=== PATIENT | female | born 1980 ===

== ENCOUNTER 2016-08-11 17:47 | Inpatient (IN) ==
[2016-08-11] MEDS ORDERED: KETOROLAC 30 MG/1 ML VIAL IV STA (18:13)
[2016-08-11] MEDS ORDERED: CLINDAMYCIN INJ 900 MG in PREMIX 1 EACH IV STA (18:13)
--- NOTE | 2016-08-11 18:18 | Emergency Department Note ---
Arrival - Arrival Chief Complaint: Abscess Stated Complaint: abscess; osteomylitis ED Nursing Triage Note: Pt arrived via ems from [facility] ER with complaint of abscess to left lower jaw. Pt reports having wisdom tooth pulled from left lower jaw on yesterday at [facility]. Pt reports having pain. Went to er today. Was told that drainage released when tooth was pulled. Pt complains of difficulty swallowing. Rates pain 5 out of 10 on pain scale. Mode of Arrival: Stretcher Limitations: No Limitations Source: Patient Time Seen by Provider: 08/11/16 18:13 - History of Present Illness HPI Narrative: This 36-year-old female [place] presents on referral from [facility] for evaluation of left lower jaw pain. The patient has a history of a toothache dating back 5 days ago followed by a visit to the dentist yesterday where she had a wisdom tooth pulled. Following this she had persistent swelling increased pain and pain on swallowing that caused her to return to the [facility] last night at which time she was given antibiotics and a steroid. The situation did not improve this morning with increasing complaints of pain on swallowing, increased swelling of the left jaw, and increased pain. Subsequent workup at [place] revealed lytic lesions of the posterior mandibular body consistent with abscesses or acute osteomyelitis as well as a fluid density structure centered in left piriform sinus. The patient currently presents in discomfort but in no acute medical distress. Onset (ago): hour(s) (Patient presents 24 hours post onset of symptoms.) Date of Last Menstrual Period: 06/12/16 Allergies/Adverse Reactions: Allergies Allergy/AdvReac Type Severity Reaction Status Date / Time No Known Allergies Allergy Unverified 08/11/16 18:39 Review of System - Review of System 12 point system: reviewed and no additional remarkable complaints except as stated - Review of System Constitutional: Present: as per HPI Head/Ears/Nose/Throat: Present: see HPI Medical,Surgical,& Family Hx - Social History Smoking Status: Never smoker Frequency of Alcohol Use: None Type of Drug Use: None Exam Physical Examination: GENERAL: Well developed, well nourished female in no acute distress. HEENT: Normocephalic. Swollen left jaw and left neck with very tender left mandible to the angle of the jaw.. Moist mucous membranes. EOMI. PERRLA. ENT ears clear, nose clear, throat reveals evidence of recent tooth extraction as well as with erythematous tender floor the mouth and left mandibular gum as well as marked limitation on the ability to open her mouth due to pain NECK: Supple. Cervical adenopathy. CARDIAC: Regular. No murmurs. Heart rate 64 CHEST: Clear to auscultation. No respiratory distress. O2 sat 99% ABDOMEN: Soft. Nontender. Active bowel sounds. EXTREMITIES: No trauma. Normal ROM. No pedal edema. SKIN: No diaphoresis. No rash. NEURO: Alert. Neuro intact. No focal deficits. Vital Signs: Vital Signs Temperature 97.5 F L 08/11/16 17:50 Pulse Rate 67 08/11/16 18:15 Respiratory Rate 16 08/11/16 18:15 Blood Pressure 111/83 08/11/16 18:15 O2 Sat by Pulse Oximetry 99 08/11/16 18:15 Course - Reevaluation(s) Reevaluation #1: Patient expectant of admission - Consultations Consultation #1: Discussed with Dr. hall who will see on consult. Consultation #2: Discussed with hospitalist service who will admit for further evaluation treatment. Results - Labs Labs: Lab per Neno: White blood cell count 5900 hematocrit 36 BUN 6 creatinine 0.7 potassium 4.5 - Diagnostic Findings Procedure: CT: image reviewed by me, report reviewed by me (Neck: Lytic lesions involving the posterior mandibular body consistent with abscesses and acute osteomyelitis with cervical and submandibular adenopathy more severe on the left including a fluid density structure at center in the left piriform sinus) Disposition Clinical Impression: Left mandibular abscesses Case discussed with: patient Disposition: Still a Patient Condition: Guarded Time of Disposition: 18:41
[2016-08-11] MEDS ORDERED: KETOROLAC 30 MG/1 ML VIAL ONE (18:28)
[2016-08-11] MEDS ORDERED: methylPREDNISolone SOD SUC 125 MG/2 ML VIAL IV STA (18:35)
[2016-08-11] MEDS ORDERED: CLINDAMYCIN INJ 300 MG in SODIUM CHLORIDE 0.9% 100 ML IV STA (18:39)
[2016-08-11] MEDS ORDERED: methylPREDNISolone SOD SUC 125 MG/2 ML VIAL ONE (18:43)
[2016-08-11 18:47] LABS: Basophils % 0.4 % (0.0-0.8); Eosinophils % 0.7 % (0.00-10.9); Hematocrit 35.3 VOL% (35.7-47.0); Hemoglobin 11.7 GM/DL (12.0-16.0); Immature Granulocytes % 0.4 %; Immature Granulocytes Absolute 0.02 #; Lymphocytes # 1.2 10*3/uL (1.4-4.0); Lymphocytes % 21.4 % (21.3-54.2); Mean Corpuscular HGB Conc 33.1 GM/DL (32-36); Mean Corpuscular Hemoglobin 31 PG (27-34); Mean Corpuscular Volume 92.7 FL (87-102); Mean Platelet Volume 8.6 FL (9.6-12.0); Monocytes # 0.4 10*3/uL (0.11-0.8); Monocytes % 6.8 % (1.7-12.7); Neutrophils % 70.3 % (38.7-73.9); Platelet Count 264 T/CUMM (130-400); Red Blood Count 3.81 MC/CUMM (3.8-5.5); Red Cell Distribution Width 12.5 % (9.3-17.3); White Blood Count 5.6 T/CUMM (4-12)
[2016-08-11] MEDS ORDERED: CLINDAMYCIN INJ 300 MG in PREMIX 1 EACH IV STA (18:48)
[2016-08-11 18:58] LABS: INR 0.9; PT Patient Result 9.9 SECS; Partial Thromboplastin Time 27.9 SECS (0-40)
[2016-08-11] MEDS ORDERED: GLUCAGON 1 MG VIAL IM PRN (19:03)
[2016-08-11] MEDS ORDERED: ONDANSETRON 4 MG/2 ML VIAL IV PRN (19:03)
[2016-08-11] MEDS ORDERED: DEXTROSE 50% 25 GM/50 ML VIAL IV PRN (19:03)
[2016-08-11 19:13] LABS: Calcium 8.5 MG/DL (8.5-10.1); Osmolality,Calculated 278.3 MOS/KG (273-304); Potassium 4.3 MMOL/L (3.5-5.1)
--- NOTE | 2016-08-11 20:14 | CT Report ---
History is a left mandibular abscess 80 cc Omni 350 utilized There is a 1 x 1.5 cm lucency in the left mandible posteriorly regular the posterior molars would be expected. There is a focal area of cortical dehiscence posterior medially in this area. There is periosteal reaction along the medial aspect of the posterior body and angle of the mandible on the left. Contiguous with this area along the medial aspect of the angle of the left mandible is a 1.1 x 2.1 cm loculated fluid collection. There is surrounding soft tissue thickening involving the pterygoids muscles with additional thickening of the left masseter muscle and stranding in the surrounding fat. There is also mildly increased size and density of the left parotid gland. There are several up to 1.3 cm left submandibular nodes present. There is also asymmetric soft tissue thickening of the pharyngeal mucosal space on the left with a suspected more focal just under 1 cm fluid collection along the pharyngeal mucosal of the hypopharynx along the aryepiglottic fold on the left. There is mild resulting mass effect and narrowing of the airway. Impression: 1. Osteomyelitis in the left mandible with adjacent soft tissue abscess medial to the mandible and additional edema and mass effect on the hypopharynx including a suspected 1 cm abscess collection in the pharyngeal mucosal space along the aryepiglottic folds on the left with resulting narrowing of the airway. Please see above for complete details The CT exam was performed using one or more of the following dose reduction techniques: Automated exposure control, adjustment of the mA and/or kV according to patient size, or use of iterative reconstruction technique. PROCEDURE INTERPRETED AT [facility] DEPARTMENT OF RADIOLOGY Final Report Signed by: Dr. Gladys Vicente
[2016-08-11] MEDS: LACTATED RINGERS 1,000 ML IV SCH (22:01)
[2016-08-11] MEDS: CLINDAMYCIN INJ 900 MG in PREMIX 1 EACH IV SCH (22:02)
[2016-08-12] MEDS: INSULIN REGULAR 100 UNIT/ML SUBCUT SCH ×6 (00:25→23:35)
[2016-08-12] MEDS: CLINDAMYCIN INJ 900 MG in PREMIX 1 EACH IV SCH ×4 (02:38→20:12)
[2016-08-12] MEDS: HYDROmorphone 2 MG/1 ML VIAL IV PRN ×2 (04:51→20:13)
[2016-08-12] MEDS: LACTATED RINGERS 1,000 ML IV SCH ×3 (04:54→20:12)
--- NOTE | 2016-08-12 10:55 | History & Physical Report ---
Assessment and Plan - Time spent with patient Time spent with patient: Less than 30 minutes (1) Mandibular abscess Status: Acute Assessment and plan: I recommend evaluation under anesthesia with incision and drainage and debridement of possible mandibular and submandibular abscess. Risks and benefits were discussed and she desires to proceed with surgery. Current Visit: Yes (2) Submandibular gland swelling Status: Acute Current Visit: Yes (3) S/P tooth extraction Status: Acute Current Visit: Yes (4) Trismus Status: Acute Current Visit: Yes (5) Dysphasia Status: Acute Current Visit: Yes (6) Odynophagia Status: Acute Current Visit: Yes History of Present Illness Chief complaint: Trismus left mandibular swelling History of present illness: Ms. Manley is a 36 year old female with trismus and left mandibular swelling status post left mandibular teeth extraction. She is noted dysphasia and odynophagia. This is been a dull pain with exacerbations of sharp pain worsened by opening her mouth and better by resting worsened by eating eating as well. Patient is evaluated and found to have a abscess that is perimandibular with possible osteomyelitis ENT is evaluated. OMFS will not take the patient's insurance. Home Medications Medication Instructions Recorded Confirmed Type Amoxicillin/Potassium Clav [Amox 1 each PO BID 08/11/16 08/11/16 History Tr-K Clv 875-125 mg Tab] HYDROcodone/ACETAMIN 5-325 [Mayer 1 tablet PO Q4H 08/11/16 08/11/16 History 5-325] Ibuprofen Tab [Motrin Tab] 600 mg PO Q6H 08/11/16 08/11/16 History Allergies Allergy/AdvReac Type Severity Reaction Status Date / Time No Known Allergies Allergy Unverified 08/11/16 18:39 12 point system: reviewed and no additional remarkable complaints except as stated Medical,Surgical,& Family Hx - Medical History Neurology: History of: Migraine HEENT: History of: Dental Problems (mandibular abscess) - Family History Family History: Reports;: Family Diabetes (mother and father), Family Hypertension (mother and father), Family Stroke (mother) - Social History Smoking Status: Never smoker Frequency of Alcohol Use: None Type of Drug Use: None Exam - Constitutional Vitals: Period Temp Pulse Resp BP Sys/Mauricio Pulse Ox Last 24 Hr 97.5 F-98.4 F 64-77 16-20 103-133/66-83 94-100 General appearance: normal weight, no acute distress - Head Head exam: Present: normal inspection, normocephalic - Eye Eye exam: Present: EOMI Pupils: Present: LIA - ENT ENT exam: Present: normal exam, normal external ear exam, other (Noted trismus though improved from yesterday's exam per the ER.) - Expanded ENT Exam Ear exam: Present: TM's normal bilaterally Mouth exam: Present: moist Teeth exam: Present: other (Difficult to examine because of the trismus.) Throat exam: Present: normal inspection (Unable to thoroughly examine because of the trismus) - Neck Neck exam: Present: other (Left submandibular subcutaneous swelling with no gross abscess or fluctuance per examination probable inflammation from mandibular abscess and infection.) - Respiratory Respiratory exam: Present: clear to auscultation bilaterally - Cardiovascular Cardiovascular exam: Present: regular rate and rhythm - GI/Abdominal GI/Abdominal exam: Present: normal bowel sounds, soft - Extremities Exam Extremities exam: Present: normal inspection, normal capillary refill - Neurological Exam Neurological exam: Present: alert, oriented X3, CN II-XII intact - Psychiatric Psychiatric exam: Present: normal affect, normal mood - Skin Skin exam: Present: normal color, warm Results - Labs CBC & BMP: 08/11/16 18:37 08/11/16 18:37
[2016-08-12] MEDS ORDERED: LIDOCAINE 100 MG/5 ML SYRINGE ONE (15:00)
[2016-08-12] MEDS ORDERED: PROPOFOL 200 MG/20 ML VIAL IV ONE (15:00)
[2016-08-12] MEDS ORDERED: ONDANSETRON 4 MG/2 ML VIAL ONE (15:00)
[2016-08-12] MEDS ORDERED: SUCCINYLCHOLINE 200 MG/10 ML VIAL ONE (15:00)
--- NOTE | 2016-08-12 15:52 | Anesthesia Post-Op ---
Anesthesia Post OP - Post Ansesthetic Evaluation Patient seen in post op: Yes Resp: within normal limits CV: within normal limits Mental: within normal limits Temp: within normal limits [id number]: within normal limits Nausea and Vomiting: within normal limits Pain: within normal limits
[2016-08-12] MEDS ORDERED: fentaNYL 100 MCG/2 ML VIAL ONE (15:56)
[2016-08-12] MEDS ORDERED: SEVOFLURANE 1 UNIT/15 MINUTE INH ONE (15:56)
[2016-08-12] MEDS ORDERED: MIDAZOLAM 2 MG/2 ML VIAL ONE (15:57)
[2016-08-12] MEDS ORDERED: ACETAMINOPHEN 1,000 MG/100 ML VIAL IV ONE (15:57)
[2016-08-12] MEDS: CLINDAMYCIN 300 MG CAPSULE PO SCH ×2 (17:43→23:18)
[2016-08-12] MEDS: CHLORHEXIDINE 0.12% ORAL RINSE 60 ML BOTTLE SWISH/SPIT SCH (20:14)
[2016-08-12] MEDS: LACTOBACILLUS ACIDOPHILUS/BULGARICUS CHEW TABLET PO SCH (20:48)
[2016-08-13] MEDS: CLINDAMYCIN INJ 900 MG in PREMIX 1 EACH IV SCH ×4 (02:06→20:41)
[2016-08-13] MEDS: LACTATED RINGERS 1,000 ML IV SCH ×3 (02:51→20:33)
[2016-08-13] MEDS: CLINDAMYCIN 300 MG CAPSULE PO SCH ×4 (05:04→23:01)
[2016-08-13] MEDS: INSULIN REGULAR 100 UNIT/ML SUBCUT SCH ×3 (05:06→18:51)
[2016-08-13] MEDS: CHLORHEXIDINE 0.12% ORAL RINSE 60 ML BOTTLE SWISH/SPIT SCH ×2 (09:18→20:32)
[2016-08-13] MEDS: LACTOBACILLUS ACIDOPHILUS/BULGARICUS CHEW TABLET PO SCH ×3 (09:18→20:32)
--- NOTE | 2016-08-13 09:55 | Progress Note ---
Assessment and Plan - Time spent with patient Time spent with patient: Greater than 30 minutes (1) Mandibular abscess Status: Acute Assessment and plan: I recommend evaluation under anesthesia with incision and drainage and debridement of possible mandibular and submandibular abscess. Risks and benefits were discussed and she desires to proceed with surgery. 08/13/2016 With her fingerstick Accu-Chek at 160 were going to start her on metformin twice a day to see if that will sensitize her to her insulin were also going to change her to a diabetic diet as this is delaying her wound healing and infection control. We will continue her on IV minimizes along with oral clindamycin. We will get a CT with contrast of the neck most likely tomorrow unless there is marked improvement. I will start her on Decadron to help with some of the inflammation though this will elevate her sugars more I think it is reasonable at this point and hopefully the addition of a diabetic diet and metformin will help with this we may need a little bit of insulin to help her during this time. If we continue to struggle we may need to consult the hospitalist for medical management. I did discuss with patient that if the abscess appears worsened we will potentially have to take her back and do a transcutaneous drainage of the submandibular abscess. Additionally I encouraged the patient to continue to massage that area and place a hot pack on it in order to encourage it to drain. Current Visit: Yes (2) Submandibular gland swelling Status: Acute Current Visit: Yes (3) S/P tooth extraction Status: Acute Current Visit: Yes (4) Trismus Status: Acute Current Visit: Yes (5) Dysphasia Status: Acute Current Visit: Yes (6) Odynophagia Status: Acute Current Visit: Yes Family Medicine PN Sub Interval history: Postop day #1 left mandibular abscess debridement and submandibular abscess intraoral incision and drainage. We started her on oral clindamycin and have continued IV clindamycin as I continue to wait on cultures. The patient notes no improvement though it is been less than 24 hours since surgery. She notes some continued trismus and overall some facial and neck pain. The pain is constant only dull with some acute exacerbations none greater than 7 out of 10 and only for short while she also notes feeling feverish. Exam (Progress Note) - Constitutional Vitals: Period Temp Pulse Resp BP Sys/Mauricio Pulse Ox Last 24 Hr 97.5 F-99.3 F 68-98 16-20 91-110/41-82 93-100 General appearance: normal weight, no acute distress - Head Head exam: Present: normal inspection, normocephalic - Eye Eye exam: Present: EOMI Pupils: Present: LIA - ENT ENT exam: Present: normal exam, normal external ear exam, other (Left open tooth socket with debris with an attempt to manually remove at bedside and patient is encouraged to brush in that area and use the Peridex in that area. To keep the area to drain.) - Expanded ENT Exam ENT Exam Mouth exam: Present: moist Teeth exam: Present: other (See above recently removed left mandibular molar) Throat exam: Present: normal inspection - Neck Neck exam: Present: tenderness, other (Left submandibular tenderness with no gross fluctuance though it does not appear improved from yesterday which is not completely surprising less than 24 hours from surgery.) - Respiratory Respiratory exam: Present: clear to auscultation bilaterally - Cardiovascular Cardiovascular exam: Present: regular rate and rhythm - GI/Abdominal GI/Abdominal exam: Present: normal bowel sounds, soft, other (We will change her to a diabetic diet) - Extremities Exam Extremities exam: Present: normal inspection, normal capillary refill - Neurological Exam Neurological exam: Present: alert, oriented X3, CN II-XII intact - Psychiatric Psychiatric exam: Present: normal affect, normal mood - Skin Skin exam: Present: normal color, warm Results - Labs CBC & BMP: 08/11/16 18:37 08/11/16 18:37 Lab Results: I have reviewed the past 24 hour labs (We will check a CBC and bMP today additionally her Accu-Chek was elevated at 160)
[2016-08-13] MEDS ORDERED: GLUCAGON 1 MG VIAL IM PRN (10:01)
[2016-08-13] MEDS ORDERED: DEXTROSE 50% 25 GM/50 ML VIAL IV PRN (10:01)
[2016-08-13] MEDS: DEXAMETHASONE INJ 8 MG in SODIUM CHLORIDE 0.9% 50 ML IV SCH (14:05)
[2016-08-13] MEDS: HYDROmorphone 2 MG/1 ML VIAL IV PRN (20:32)
[2016-08-14] MEDS: INSULIN REGULAR 100 UNIT/ML SUBCUT SCH ×3 (00:12→15:17)
[2016-08-14] MEDS: CLINDAMYCIN INJ 900 MG in PREMIX 1 EACH IV SCH ×2 (02:01→10:46)
[2016-08-14] MEDS: LACTATED RINGERS 1,000 ML IV SCH ×2 (02:34→15:16)
[2016-08-14] MEDS: CLINDAMYCIN 300 MG CAPSULE PO SCH (05:06)
[2016-08-14 06:14] LABS: Basophils % 0.1 % (0.0-0.8); Eosinophils % 0.1 % (0.00-10.9); Hematocrit 32.1 VOL% (35.7-47.0); Hemoglobin 10.9 GM/DL (12.0-16.0); Immature Granulocytes % 1.2 %; Immature Granulocytes Absolute 0.11 #; Lymphocytes # 1.4 10*3/uL (1.4-4.0); Lymphocytes % 16.3 % (21.3-54.2); Mean Corpuscular Hemoglobin 31 PG (27-34); Mean Corpuscular Volume 90.7 FL (87-102); Mean Platelet Volume 8.5 FL (9.6-12.0); Monocytes # 0.6 10*3/uL (0.11-0.8); Neutrophils # 6.7 10*3/uL (1.4-7.4); Neutrophils % 75.3 % (38.7-73.9); Platelet Count 300 T/CUMM (130-400); Red Blood Count 3.54 MC/CUMM (3.8-5.5); White Blood Count 8.8 T/CUMM (4-12)
[2016-08-14 06:34] LABS: Calcium 9.3 MG/DL (8.5-10.1); Magnesium 2.2 MG/DL (1.8-2.4); Osmolality,Calculated 278.5 MOS/KG (273-304); Potassium 4.2 MMOL/L (3.5-5.1)
[2016-08-14] MEDS: LACTOBACILLUS ACIDOPHILUS/BULGARICUS CHEW TABLET PO SCH (10:46)
[2016-08-14] MEDS: CHLORHEXIDINE 0.12% ORAL RINSE 60 ML BOTTLE SWISH/SPIT SCH (10:46)
--- NOTE | 2016-08-14 12:42 | Discharge Summary ---
Hospital Course - Hospital Course Hospital Course: 36-year-old female status post dental extraction with submandibular and angle of the mandible abscess with possible osteomyelitis per radiography she was ultimately taken back to the OR where this was drained and debrided and the angle of the mandible was rongeured until it was viable bone throughout. She was continued on IV clindamycin and has been started on oral Clindamycin additionally I started her on metformin as her sugars have been intermittently high and she is most likely metabolic syndrome if not already a diabetic that has not been diagnosed yet. She is improving and will keep her on long-term antibiotics she will follow-up with dentist who performed the procedure on Monday she will follow-up with me in 1 week - Time spent with patient Time with patient DS: Less than 30 minutes Diagnosis - Discharge Diagnosis (1) Mandibular abscess Status: Acute (2) Submandibular gland swelling Status: Acute (3) S/P tooth extraction Status: Suspected (4) Trismus Status: Resolved (5) Dysphasia Status: Resolved (6) Odynophagia Status: Resolved Specialty Discharge - Follow Up or Referrals Follow up with: Romulo Dial DO [Physician] - 2 Weeks Discharge Plan - Discharge Data Disposition: Disch To Home/Self Care Condition at Discharge: Stable Discharge Diet: advance to your usual diet Activity: resume usual activities as tolerated Hygiene: no restrictions Weight Bearing at Discharge: full weight bearing - Discharge Medications New Chlorhexidine 0.12% Oral Rinse [Peridex] 15 ml SWISH/SPIT BID #40 tablespoon Lactobacillus Acidoph/Bulgar [Lactinex Chew Tab] 2 tablet PO TID #120 tablet metFORMIN XR [Glucophage Xr] 500 mg PO BID W/MEALS #60 tablet Clindamycin Cap [Cleocin Cap] 300 mg PO Q6HR #80 capsule Continue HYDROcodone/ACETAMIN 5-325 [[place] 5-325] 1 tablet PO Q4H Amoxicillin/Potassium Clav [Amox-Clav 875-125 mg Tablet] 1 each PO BID Ibuprofen Tab [Motrin Tab] 600 mg PO Q6H - Follow Up or Referral - Forms/Instructions Exam - Constitutional Vitals: Period Temp Pulse Resp BP Sys/Mauricio Pulse Ox Last 24 Hr 97.6 F-98.7 F 61-64 16-18 90-115/49-76 93-98 General appearance: normal weight, no acute distress - Head Head exam: Present: normal inspection, normocephalic - Eye Eye exam: Present: EOMI Pupils: Present: LIA - ENT ENT exam: Present: normal exam, normal external ear exam, normal oropharynx - Expanded ENT Exam Ear exam: Present: TM's normal bilaterally Mouth exam: Present: moist Teeth exam: Present: dental caries Throat exam: Present: normal inspection - Neck Neck exam: Present: tenderness, other (Submandibular tenderness and resolving abscess) - Respiratory Respiratory exam: Present: clear to auscultation bilaterally - Cardiovascular Cardiovascular exam: Present: regular rate and rhythm - GI/Abdominal GI/Abdominal exam: Present: normal bowel sounds, soft - Extremities Exam Extremities exam: Present: normal inspection - Neurological Exam Neurological exam: Present: alert, oriented X3, CN II-XII intact - Psychiatric Psychiatric exam: Present: normal affect, normal mood - Skin Skin exam: Present: normal color, warm Discharge Results Procedures and tests throughout hospitalization: Pending Orders 08/11/16 18:37 Blood Culture Stat 08/12/16 15:21 Abscess Culture Routine Labs on day of discharge: Labs from last 24 hours 08/14/16 08/14/16 08/14/16 07:26 05:49 05:49 WBC 8.8 D RBC 3.54 L Hgb 10.9 L Hct 32.1 L MCV 90.7 MCH 31 MCHC 34.0 RDW 12.0 Plt Count 300 MPV 8.5 L Neut % (Auto) 75.3 H Lymph % (Auto) 16.3 L [place] % (Auto) 7.0 Eos % (Auto) 0.1 Baso % (Auto) 0.1 Neut # (Auto) 6.7 Lymph # (Auto) 1.4 [place] # (Auto) 0.6 Eos # (Auto) 0.0 Baso # (Auto) 0.0 Immature Gran % 1.2 Nucleated RBC % 0.0 Immature Gran # 0.11 Nucleated RBCs # 0.00 Sodium 139 Potassium 4.2 Chloride 100 Carbon Dioxide 29 Anion Gap 14.2 BUN 5 L Creatinine 0.60 GFR Calculation 115 BUN/Creatinine Ratio 8.00 Glucose 181 H POC Glucose 137 H Calculated Osmolality 278.5 Calcium 9.3 Magnesium 2.2 08/14/16 08/14/16 08/13/16 05:03 00:07 17:53 WBC RBC Hgb Hct MCV MCH MCHC RDW Plt Count MPV Neut % (Auto) Lymph % (Auto) [place] % (Auto) Eos % (Auto) Baso % (Auto) Neut # (Auto) Lymph # (Auto) [place] # (Auto) Eos # (Auto) Baso # (Auto) Immature Gran % Nucleated RBC % Immature Gran # Nucleated RBCs # Sodium Potassium Chloride Carbon Dioxide Anion Gap BUN Creatinine GFR Calculation BUN/Creatinine Ratio Glucose POC Glucose 208 H 162 H 314 H Calculated Osmolality Calcium Magnesium Preliminary micro results at discharge 08/12/16 15:21 Abscess Culture - Preliminary Mouth No growth at 12 hours. 08/11/16 18:37 Blood Culture - Preliminary Blood No growth at 1 day 08/11/16 18:37 Blood Culture - Preliminary Blood No growth at 1 day - Imaging and Cardiology Procedure: CT: pending, image reviewed by me, report reviewed by me (I agree with radiologic interpretation) DS: Provider Date of admission: 08/11/16 19:02 Primary care physician: Neno Panchal MD Attending physician on admission: Romulo Dial DO Discharging clinician: Romulo Dial DO Expected date of discharge: 08/14/16
[2016-08-14 14:15] VITALS: BP 104/68
[2016-08-14] MEDS: DEXAMETHASONE INJ 8 MG in SODIUM CHLORIDE 0.9% 50 ML IV SCH (15:16)
== END 2016-08-14 15:37 | disposition home or self-care (01) | DRG 129 ==
LOC: EDUNIT# → N.ED 17:47 → N.EDINP 19:02 → N.3E 19:55
PROVIDERS: ADMIT Otolaryngology; ATTEND Otolaryngology

== ENCOUNTER 2016-11-02 17:35 | Inpatient (IN) ==
--- NOTE | 2016-11-02 18:06 | Emergency Department Note ---
Arrival - Arrival Chief Complaint: Non-Specific Stated Complaint: transfer from [facility] er ED Nursing Triage Note: pt to er 18 via ems coming from [facility] er as a transfer with mass/abscess to left side of neck into mandible. Mode of Arrival: Stretcher Time Seen by Provider: 11/02/16 17:52 - History of Present Illness HPI Narrative: from [facility] in [facility] who relates a story where she had a wisdom tooth removed on the left lower jaw in August 2016 which was followed by swelling in her lower jaw area for which she went back for a second dental procedure to remove what they thought was a residual tooth fragment in September 2016 who has had persistent swelling and pain of the left lower submandibular area which has been managed with antibiotics including clindamycin and corticosteroids which has resulted in an elevation of her blood sugar for which she takes metformin and who presents to the [facility] today with marked swelling in the past 4 days of the left submandibular area without fever or chills or difficulty swallowing or breathing difficulties. Information sent with the patient from [facility] show a CT scan which is read as "Probable phlegmon in the subcutaneous tissue between the left parotid gland, left sternocleidomastoid muscle and the left masseter muscle.. "There is decreased cellu Allergies/Adverse Reactions: Allergies Allergy/AdvReac Type Severity Reaction Status Date / Time vancomycin AdvReac Mild ITCHING Verified 11/02/16 19:42 Home Medications: Home Medications Medication Instructions Recorded Confirmed Type Clindamycin HCl [Clindamycin Cap] 300 mg PO Q6HR 11/02/16 11/02/16 History Review of System - Review of System Constitutional: Absent: fever, night sweats, weakness Eyes: Absent: redness, vision change, other Head/Ears/Nose/Throat: Absent: epistaxis, nasal drainage Respiratory: Absent: respiratory distress, wheezing Cardiovascular: Absent: dyspnea on exertion, orthopnea Gastrointestinal: Absent: diarrhea, constipation, hematemesis, melena Genitourinary female: Absent: frequency, genital lesions Musculoskeletal: Absent: joint swelling, lower back pain, leg pain, neck pain Skin: Absent: change in color, change in hair/nails, pruritus Neurological: Absent: numbness, paresthesias, confusion Psychiatric: Absent: suicidal thoughts, homicidal thoughts Endocrine: Absent: heat intolerance, polydipsia Hematological/Lymphatic: Absent: easy bruising, lymphadenopathy Allergic/Immunologic: Absent: urticaria, itchy eyes Medical,Surgical,& Family Hx - Medical History Neurology: History of: Migraine HEENT: History of: Dental Problems (mandibular abscess) - Family History Family History: Reports;: Family Diabetes (mother and father), Family Hypertension (mother and father), Family Stroke (mother) - Social History Smoking Status: Never smoker Frequency of Alcohol Use: None Type of Drug Use: None Exam Vital Signs: Vital Signs Temperature 98.0 F 11/02/16 17:36 Pulse Rate 79 11/02/16 17:36 Respiratory Rate 18 11/02/16 17:36 Blood Pressure 103/65 11/02/16 17:36 O2 Sat by Pulse Oximetry 98 11/02/16 17:36 - General General appearance: alert - Eye Eye exam: Present: PERRL, EOMI - ENT ENT exam: Present: normal exam, normal oropharynx, other (Swelling induration warmth and tenderness of the left submandibular area) - Neck Neck exam: Present: other (Swelling induration warmth and tenderness of the left submandibular area) - Cardiovascular Cardiovascular exam: Present: regular rate, irregular rhythm - Abdominal Exam Abdominal exam: Present: soft, normal bowel sounds - Rectal Exam Rectal exam: Present: deferred, normal inspection - Extremities Exam Extremities exam: Present: normal inspection, full ROM - Back Exam Back exam: Present: normal inspection, full ROM - Neurological Exam Neurological exam: Present: alert, oriented X3 - Psychiatric Psychiatric exam: Present: normal affect, normal mood - Skin Skin exam: Present: warm, dry Course Course Narrative: The patient was transferred from [facility] for admission and intravenous antibiotics with possible surgical intervention. The case was discussed with the hospitalist will put in the orders. The patient will be admitted to the hospital with a diagnosis of cellulitis and/or abscess involving the left submandibular area of the neck and jaw. Disposition Clinical Impression: Abscess or cellulitis, neck Disposition: Still a Patient Condition: Stable
--- NOTE | 2016-11-02 19:51 | Hospitalist History & Physical ---
<Umu Garza - Last Filed: 11/02/16 19:42> Assessment and Plan (1) Submandibular abscess Status: Acute Assessment and plan: I&D by Dr. Oneal in am, clindamycin IV every 8 hours, blood cx times. CBC, CMP, hemoglobin stat Current Visit: Yes History of Present Illness Chief complaint: left submandibular abscess History of present illness: Ms. Manley is a 36 year old female from [facility] in [facility] who relates a story where she had a wisdom tooth removed on the left lower jaw in August 2016 which was followed by swelling in her lower jaw area for which she went back for a second dental procedure to remove what they thought was a residual tooth fragment in September 2016 who has had persistent swelling and pain of the left lower submandibular area which has been managed with antibiotics including clindamycin and corticosteroids which has resulted in an elevation of her blood sugar for which she took metformin and who presents to the [facility] today with marked swelling in the past 4 days of the left submandibular area without fever or chills or difficulty swallowing or breathing difficulties. Information sent with the patient from [place] show a CT scan which is read as "Probable phlegmon in the subcutaneous tissue between the left parotid gland, left sternocleidomastoid muscle and the left masseter muscle. Recently seen by Dr. Dial from 08/12/[address] I spoke Dr Oneal and he will plan to take her to surgery in am. Home Medications Medication Instructions Recorded Confirmed Type Clindamycin HCl [Clindamycin Cap] 300 mg PO Q6HR 11/02/16 11/02/16 History Allergies Allergy/AdvReac Type Severity Reaction Status Date / Time vancomycin AdvReac Mild ITCHING Verified 11/02/16 19:42 Medical,Surgical,& Family Hx - Medical History Neurology: History of: Migraine HEENT: History of: Dental Problems (mandibular abscess) - Surgical History Additional Surgical History: drainage of abscess of submaxillary and left and debridement into bone on on 08/12/16 - Family History Family History: Reports;: Family Diabetes (mother and father), Family Hypertension (mother and father), Family Stroke (mother) - Social History Smoking Status: Never smoker Frequency of Alcohol Use: None Type of Drug Use: None Marital Status: Single Lives With:: Alone Functional capacity: independent ambulation - Constitutional Constitutional: Present: fever(s) Exam - Constitutional Vitals: Period Temp Pulse Resp BP Sys/Mauricio Pulse Ox Last 24 Hr 98.0 F 79 18 103/65 98 General appearance: normal weight, no acute distress - Head Head exam: Present: normal inspection, normocephalic - Eye Eye exam: Present: EOMI. Absent: scleral icterus Pupils: Present: LIA, normal accommodation - ENT ENT exam: Present: other (submandibular abscess ) - Neck Neck exam: Present: lymphadenopathy, thyromegaly - Respiratory Respiratory exam: Present: clear to auscultation bilaterally. Absent: rhonchi, wheezes - Cardiovascular Cardiovascular exam: Present: regular rate and rhythm, systolic murmur - GI/Abdominal GI/Abdominal exam: Present: normal bowel sounds, soft. Absent: tenderness - Extremities Exam Extremities exam: Present: normal inspection, normal capillary refill - Neurological Exam Neurological exam: Present: alert, oriented X3. Absent: motor sensory deficit - Psychiatric Psychiatric exam: Present: normal affect, normal mood - Skin Skin exam: Present: normal color, warm <Butt,Eric - Last Filed: 11/02/16 20:32> Assessment and Plan (1) Submandibular abscess Status: Acute Assessment and plan: IV fluids also added while NPO. Current Visit: Yes History of Present Illness History of present illness: [facility]. Her significant other is her boyfriend Jake Larose/[phone]. Medical,Surgical,& Family Hx - Medical History Endocrine: History of: Endocrine Problems (Hyperglycemia related to steroids. No longer taking Metformin. ) - Surgical History Abdominal Surgeries: Surgical HX of: Abdominal Surgery (3 c sections and 1 D and C.), Cholecystectomy - Family History Family History: Reports;: Family Heart Disease (Father) - Social History Have you smoked in the last 12 months: No Exam - Constitutional Vitals: Period Temp Pulse Resp BP Sys/Mauricio Pulse Ox Last 24 Hr 98.0 F-98.0 F 79-79 18-18 103-103/65-65 98 - ENT ENT exam: Present: other (submandibular abscess / Left side. ) Results - Labs Labs: Labs pending. Will review once they have been drawn. - Diagnostic Findings Procedure: CT: report reviewed by me
[2016-11-02] MEDS ORDERED: ONDANSETRON 4 MG/2 ML VIAL IV PRN (20:02)
[2016-11-02] MEDS ORDERED: ACETAMINOPHEN 325 MG TABLET PO PRN (20:02)
[2016-11-02] MEDS: SODIUM CHLORIDE 0.9% 1,000 ML IV SCH (20:28)
[2016-11-02] MEDS: CLINDAMYCIN INJ 600 MG in PREMIX 1 EACH IV SCH (20:29)
[2016-11-02] MEDS: MORPHINE 2 MG/1 ML SYRINGE IV PRN (20:38)
[2016-11-02 22:46] LABS: Basophils % 0.3 % (0.0-0.8); Eosinophils # 0.1 10*3/uL (0.0-0.87); Eosinophils % 0.8 % (0.00-10.9); Hematocrit 35.4 VOL% (35.7-47.0); Immature Granulocytes % 0.3 %; Immature Granulocytes Absolute 0.02 #; Lymphocytes # 2.1 10*3/uL (1.4-4.0); Lymphocytes % 34.3 % (21.3-54.2); Mean Corpuscular HGB Conc 33.9 GM/DL (32-36); Mean Corpuscular Hemoglobin 31 PG (27-34); Mean Corpuscular Volume 89.8 FL (87-102); Mean Platelet Volume 8.8 FL (9.6-12.0); Monocytes # 0.5 10*3/uL (0.11-0.8); Monocytes % 8.3 % (1.7-12.7); Neutrophils # 3.4 10*3/uL (1.4-7.4); Platelet Count 209 T/CUMM (130-400); Red Blood Count 3.94 MC/CUMM (3.8-5.5); Red Cell Distribution Width 13.3 % (9.3-17.3); White Blood Count 6.1 T/CUMM (4-12)
[2016-11-02 23:06] LABS: Albumin 3.4 G/DL (3.4-5.0); Bilirubin,Total 0.5 MG/DL (0.2-1.0); Calcium 8.3 MG/DL (8.5-10.1); Osmolality,Calculated 279.4 MOS/KG (273-304); Potassium 3.4 MMOL/L (3.5-5.1)
[2016-11-03] MEDS: SODIUM CHLORIDE 0.9% 1,000 ML IV SCH ×3 (03:32→22:02)
[2016-11-03] MEDS: CLINDAMYCIN INJ 600 MG in PREMIX 1 EACH IV SCH ×3 (03:32→21:57)
[2016-11-03 06:12] LABS: Basophils % 0.6 % (0.0-0.8); Eosinophils # 0.1 10*3/uL (0.0-0.87); Eosinophils % 1.5 % (0.00-10.9); Hematocrit 33.5 VOL% (35.7-47.0); Hemoglobin 11.3 GM/DL (12.0-16.0); Immature Granulocytes % 0.6 %; Immature Granulocytes Absolute 0.03 #; Lymphocytes # 1.9 10*3/uL (1.4-4.0); Lymphocytes % 35.4 % (21.3-54.2); Mean Corpuscular HGB Conc 33.7 GM/DL (32-36); Mean Corpuscular Hemoglobin 31 PG (27-34); Mean Corpuscular Volume 90.3 FL (87-102); Mean Platelet Volume 9.3 FL (9.6-12.0); Monocytes # 0.4 10*3/uL (0.11-0.8); Monocytes % 8.3 % (1.7-12.7); Neutrophils # 2.8 10*3/uL (1.4-7.4); Neutrophils % 53.6 % (38.7-73.9); Platelet Count 211 T/CUMM (130-400); Red Blood Count 3.71 MC/CUMM (3.8-5.5); Red Cell Distribution Width 13.3 % (9.3-17.3); White Blood Count 5.3 T/CUMM (4-12)
[2016-11-03] MEDS: MORPHINE 2 MG/1 ML SYRINGE IV PRN ×3 (07:09→22:03)
[2016-11-03] MEDS: CHLORHEXIDINE 0.12% ORAL RINSE 60 ML BOTTLE SWISH/SPIT SCH ×2 (09:03→21:55)
--- NOTE | 2016-11-03 11:15 | Hospitalist Progress Note ---
Assessment and Plan (1) Submandibular abscess Status: Acute Assessment and plan: Patient is on antibiotics we will continue patient afebrile and normal white count. Awaiting evaluation by orofacial surgery Current Visit: Yes (2) Diabetes Status: Acute Assessment and plan: Patient noted to have hypoglycemia on admission and hemoglobin A1c noted to be 8.3 suggests patient has diabetes mellitus will watch blood sugar and cover with the short-acting as needed insulin for now Current Visit: Yes (3) Alkalosis Status: Acute Assessment and plan: Patient has a alkalosis suggested by the chemistry I am not sure it is because of volume depletion. She patient is getting IV fluid will get the repeat labs tomorrow for follow-up Current Visit: Yes Hospitalist: Subjective Interval history: Patient is 36-year-old female admitted with the left side some mandibular abscess she had this in the past since August 2016 when she had molar tooth removed left side. She also has been on IV antibiotics and to be followed by orofacial surgeon She is afebrile only complaint she has is pain at the side of the swelling Exam - Constitutional Vitals: Period Temp Pulse Resp BP Sys/Mauricio Pulse Ox Last 24 Hr 96.9 F-98.0 F 60-94 14-20 97-142/55-80 98 General appearance: over weight - Neck Neck exam: Present: tenderness (She has swelling left side under the jaw at ankle with some tenderness) - Respiratory Respiratory exam: Present: clear to auscultation bilaterally. Absent: rales, rhonchi - Cardiovascular Cardiovascular exam: Present: regular rate and rhythm. Absent: tachycardia - GI/Abdominal GI/Abdominal exam: Present: normal bowel sounds, soft. Absent: distended, tenderness - Extremities Exam Extremities exam: Present: normal inspection. Absent: edema - Neurological Exam Neurological exam: Present: alert, oriented X3 Results - Labs CBC & BMP: 11/03/16 05:03 11/02/16 22:31 Lab Results: I have reviewed the past 24 hour labs
[2016-11-03] MEDS ORDERED: LIDOCAINE 1%/EPI INJ 20 ML VIAL ONE (11:55)
[2016-11-03] MEDS ORDERED: DEXAMETHASONE 10 MG/1 ML VIAL ONE (12:05)
[2016-11-03] MEDS ORDERED: ONDANSETRON 4 MG/2 ML VIAL ONE (12:05)
[2016-11-03] MEDS ORDERED: LIDOCAINE 2% 5 ML VIAL ONE (12:05)
[2016-11-03] MEDS ORDERED: SUCCINYLCHOLINE 200 MG/10 ML VIAL ONE (12:05)
[2016-11-03] MEDS ORDERED: PROPOFOL 200 MG/20 ML VIAL IV ONE (12:05)
[2016-11-03] MEDS ORDERED: ROCURONIUM 100 MG/10 ML VIAL IV ONE (12:05)
--- NOTE | 2016-11-03 13:09 | Anesthesia Post-Op ---
Anesthesia Post OP - Post Ansesthetic Evaluation Patient seen in post op: Yes Resp: within normal limits CV: within normal limits Mental: within normal limits Temp: within normal limits [id number]-[id number]: within normal limits Nausea and Vomiting: within normal limits Pain: within normal limits
[2016-11-03] MEDS ORDERED: SEVOFLURANE 1 UNIT/15 MINUTE INH ONE (13:10)
[2016-11-03] MEDS ORDERED: MIDAZOLAM 2 MG/2 ML VIAL ONE (13:10)
[2016-11-03] MEDS ORDERED: fentaNYL 100 MCG/2 ML VIAL ONE (13:11)
[2016-11-03] MEDS ORDERED: ONDANSETRON 4 MG/2 ML VIAL IV PRN (13:19)
[2016-11-03] MEDS ORDERED: HYDROmorphone 2 MG/1 ML VIAL IV PRN (13:19)
[2016-11-03] MEDS ORDERED: HYDROmorphone 2 MG/1 ML VIAL ONE (13:20)
--- NOTE | 2016-11-03 14:29 | Operative Note ---
Date of procedure: 11/03/16 Pre-op diagnosis: left submandibular abscess, delayed healing extraction site # 17 Post-op diagnosis: same Procedure: Incision & Drainage left submandibular abscess, debridement extraction site #17 with sequestrectomy Anesthesia: MARY ELLENA, local Surgeon / Physician: Buster Oneal Estimated blood loss: none Specimens: none sent Condition: stable Disposition: PACU Results - Labs CBC & BMP: 11/03/16 05:03 11/02/16 22:31 Discharge Plan - Discharge Medications No Action Clindamycin HCl [Clindamycin Cap] 300 mg PO Q6HR - Follow Up or Referral - Forms/Instructions
--- NOTE | 2016-11-03 14:33 | Consultation ---
Assessment and Plan (1) Mandibular abscess Status: Acute Assessment and plan: Patient with left submandibular abscess and delayed healing #17 extraction site with exposed bone 1. Consent for debridement left mandible and incision and drainage left submandibular abscess 2. NPO @ Midnight 3. start peridex oral rinse BID 4. continue iv antibiotics Current Visit: No History of Present Illness - Data of Consult Patient: new to practice Consult date: 11/03/16 Requesting Physician: Umu Garza - Consult Narrative Reason for consult: left submandibular swelling History of present illness: Ms. Manley is a 36 year old female who had a tooth extraction with her local dentist in august 2016 which then resulted in an abscess and was drained by Dr Dial a few weeks back now returns again withe left submandibular swelling. CT scan shows no collection but phlegmon. No intraoral swelling, no dysphagia, no dyspnea. CC: Mando Solano MD - Home Medications and Allergies Home Medications: Home Medications Medication Instructions Recorded Confirmed Type Clindamycin HCl [Clindamycin Cap] 300 mg PO Q6HR 11/02/16 11/02/16 History Allergies/Adverse Reactions: Allergies Allergy/AdvReac Type Severity Reaction Status Date / Time vancomycin AdvReac Mild ITCHING Verified 11/02/16 19:42 - Constitutional Constitutional: Present: as per HPI - EENT Nose, mouth and throat: Present: other (left submandibular swelling and tenderness, small flucutant mass at left angle of mandible, no drainage, no intraoral swelling, small area of exposed bone at extraction site #17 with ttp) Medical,Surgical,& Family Hx - Medical History Neurology: History of: Migraine No history of: Seizures HEENT: History of: Dental Problems (mandibular abscess) Endocrine: History of: Endocrine Problems (Hyperglycemia related to steroids. No longer taking Metformin. ) Respiratory: History of: Asthma (asthma as a child) Other: History of: Cancer (ovarian cancer at age 15-16) - Surgical History Thoracic Surgeries: Patient denies;: Organ Transplant HEENT Surgeries: Patient denies: Tonsilectomy & Adenoidectomy Abdominal Surgeries: Surgical HX of: Abdominal Surgery (3 c sections and 1 D and C.), Cholecystectomy Reproductive Surgeries: Surgical HX of;: Section (3 c sections), Tubal Ligation - Family History Family History: Reports;: Family Diabetes (mother and father), Family Heart Disease (Father), Family Hypertension (mother and father), Family Stroke (mother ) - Social History Smoking Status: Never smoker Frequency of Alcohol Use: None Type of Drug Use: None Exam - Constitutional Vitals: Period Temp Pulse Resp BP Sys/Mauricio Pulse Ox Last 24 Hr 96.9 F-98.0 F 60-94 13-20 93-142/55-86 94-100 Results - Labs CBC & BMP: 11/03/16 05:03 11/02/16 22:31
[2016-11-04] MEDS: MORPHINE 2 MG/1 ML SYRINGE IV PRN (02:10)
[2016-11-04] MEDS: CLINDAMYCIN INJ 600 MG in PREMIX 1 EACH IV SCH ×3 (04:00→21:10)
[2016-11-04] MEDS: SODIUM CHLORIDE 0.9% 1,000 ML IV SCH ×3 (04:14→21:12)
[2016-11-04 06:02] LABS: Basophils % 0.1 % (0.0-0.8); Hematocrit 32.6 VOL% (35.7-47.0); Hemoglobin 11.3 GM/DL (12.0-16.0); Immature Granulocytes % 0.4 %; Immature Granulocytes Absolute 0.04 #; Mean Corpuscular HGB Conc 34.7 GM/DL (32-36); Mean Corpuscular Hemoglobin 31 PG (27-34); Mean Corpuscular Volume 87.9 FL (87-102); Mean Platelet Volume 9.2 FL (9.6-12.0); Monocytes # 0.4 10*3/uL (0.11-0.8); Monocytes % 4.4 % (1.7-12.7); Neutrophils # 7.6 10*3/uL (1.4-7.4); Neutrophils % 84.1 % (38.7-73.9); Platelet Count 223 T/CUMM (130-400); Red Blood Count 3.71 MC/CUMM (3.8-5.5); Red Cell Distribution Width 12.9 % (9.3-17.3); White Blood Count 9.1 T/CUMM (4-12)
[2016-11-04 06:32] LABS: Calcium 8.4 MG/DL (8.5-10.1); Osmolality,Calculated 278.5 MOS/KG (273-304); Potassium 4.2 MMOL/L (3.5-5.1)
[2016-11-04] MEDS: CHLORHEXIDINE 0.12% ORAL RINSE 60 ML BOTTLE SWISH/SPIT SCH ×2 (09:53→21:09)
--- NOTE | 2016-11-04 14:32 | Magnetic Resonance Report ---
MRA of the neck prior to and after administration of intravenous contrast November 04, 2016 Indication: Neck swelling Comparison: MR comparison not available. CT soft tissue neck was performed August 11, 2016 Technique: Multisequence, multiplanar imaging of the neck was performed per angiography protocol with raw data and MIP reconstructed images submitted for interpretation. 21 0 mL of contrast Findings: Evaluation of the arch and proximal branch vessels are unremarkable. Normal course, caliber and flow through the common carotid arteries bilaterally across the bifurcations. Normal caliber and flow of the internal carotid arteries. No luminal irregularity, stenosis or occlusion is appreciated. Vertebral arteries are unremarkable in appearance. Visualized transverse and sigmoid sinuses are unremarkable. Limited evaluation of the brain parenchyma demonstrates no gross abnormality. Examination is technically limited for evaluation of adjacent soft tissues. No gross abnormality is demonstrated. If clinically concerned, postcontrast soft tissue neck could be performed. Impression: Normal MRA neck PROCEDURE INTERPRETED AT [facility] DEPARTMENT OF RADIOLOGY Final Report Signed by: Andrew Florian
--- NOTE | 2016-11-04 15:15 | Hospitalist Progress Note ---
Assessment and Plan (1) Mandibular abscess Status: Acute Assessment and plan: Patient is post drainage of this abscess. Microbiology is pending at this point will reassess the patient tomorrow. Only R urine is seen to her treatment as we await further assessment. She may benefit from an MRI of the neck lesion as well as the mandibular and submandibular region. NOTE: There was only CT scan done in this area that did mention of soft tissue involvement and stated that there may be bone resorption. As such we need to verify absence of osteomyelitis. Current Visit: No (2) Submandibular abscess Status: Acute Current Visit: Yes Hospitalist: Subjective Interval history: First encounter with the patient 36-year-old lady was admitted to the hospital with a left submandibular abscess with what looks like some involvement of the jaw bone at the corner of the left mandible. Patient has had drainage of this abscess. Microbiology is pending. What she tells him that is not the first time she has had procedure at this site. Possibility of chronic infection is an issue. Osteomyelitis will range under long-term treatment. There is no suggestion that this infection has descended down into the lower neck. Patient has only been on clindamycin IV however if there is bone infection this bacteriostatic antibiotic can not be the primary treatment at this at the onset of issues. She has allergies to vancomycin patient can take Unasyn. We will therefore added to clindamycin Exam - Constitutional Vitals: Period Temp Pulse Resp BP Sys/Mauricio Pulse Ox Last 24 Hr 97.1 F-98.9 F 61-83 18-20 103-123/65-84 97 General appearance: normal weight, no acute distress - Head Head exam: Present: other (Noticed swelling on the left side of her face. Receding erythema. She still quite tender on the left side including at the corner of the jaw and upper confines of the neck. Receding edema) - Eye Eye exam: Present: EOMI - ENT ENT exam: Present: other - Neck Neck exam: Present: other (Reduce movement due to pain. However there is no swelling in the lower portion of the neck patient has no problems swallowing. Does not complain of mediastinal discomfort) - Respiratory Respiratory exam: Present: clear to auscultation bilaterally - Cardiovascular Cardiovascular exam: Present: regular rate and rhythm - GI/Abdominal GI/Abdominal exam: Present: normal bowel sounds, soft - Extremities Exam Extremities exam: Present: full ROM - Neurological Exam Neurological exam: Present: alert, oriented X3, CN II-XII intact - Psychiatric Psychiatric exam: Present: normal affect, normal mood - Skin Skin exam: Present: normal color, warm, dry Results - Labs CBC & BMP: 11/04/16 04:44 11/04/16 04:44 Lab Results: I have reviewed the past 24 hour labs
[2016-11-04] MEDS: AMPICILLIN/SULBACTAM 3,000 MG in SODIUM CHLORIDE 0.9% 100 ML IV SCH (19:43)
[2016-11-05] MEDS: SODIUM CHLORIDE 0.9% 1,000 ML IV SCH ×2 (00:32→17:35)
[2016-11-05] MEDS: AMPICILLIN/SULBACTAM 3,000 MG in SODIUM CHLORIDE 0.9% 100 ML IV SCH ×4 (02:48→20:16)
[2016-11-05 04:36] LABS: Basophils % 0.1 % (0.0-0.8); Eosinophils % 0.4 % (0.00-10.9); Hematocrit 31.7 VOL% (35.7-47.0); Hemoglobin 10.7 GM/DL (12.0-16.0); Immature Granulocytes % 0.7 %; Immature Granulocytes Absolute 0.05 #; Lymphocytes # 2.1 10*3/uL (1.4-4.0); Lymphocytes % 31.9 % (21.3-54.2); Mean Corpuscular HGB Conc 33.8 GM/DL (32-36); Mean Corpuscular Hemoglobin 30 PG (27-34); Mean Corpuscular Volume 89.5 FL (87-102); Mean Platelet Volume 9.2 FL (9.6-12.0); Monocytes # 0.4 10*3/uL (0.11-0.8); Monocytes % 6.6 % (1.7-12.7); Neutrophils % 60.3 % (38.7-73.9); Platelet Count 202 T/CUMM (130-400); Red Blood Count 3.54 MC/CUMM (3.8-5.5); Red Cell Distribution Width 13.2 % (9.3-17.3); White Blood Count 6.7 T/CUMM (4-12)
[2016-11-05] MEDS: CLINDAMYCIN INJ 600 MG in PREMIX 1 EACH IV SCH ×2 (05:46→12:59)
--- NOTE | 2016-11-05 13:51 | Hospitalist Progress Note ---
Assessment and Plan (1) Mandibular abscess Status: Acute Assessment and plan: Patient is post drainage of this abscess. Microbiology is pending at this point will reassess the patient tomorrow. Only R urine is seen to her treatment as we await further assessment. She may benefit from an MRI of the neck lesion as well as the mandibular and submandibular region. NOTE: There was only CT scan done in this area that did mention of soft tissue involvement and stated that there may be bone resorption. As such we need to verify absence of osteomyelitis. MRI is been done today pending report. Unfortunately department had done an MRI yesterday which is not what had ordered. If there is osteomyelitis treatment should be at least 6 weeks but bacteriocidal antibiotic. Current Visit: No (2) Submandibular abscess Status: Acute Assessment and plan: Continue warm compresses to the buccal area. Continue Unasyn Current Visit: Yes Hospitalist: Subjective Interval history: Patient has been seen interviewed and examined and chart has been reviewed. She will admitted to the hospital on 02 November after being transferred here from [facility] in [facility] with a left submandibular abscess. CT scan had been done there subsequently patient underwent surgery with a debridement of the infected site. Unfortunately reviewed old microbiology interested I do not see any cultures from the operating room. Blood cultures are not growing. CT scan done at the outlying center did mention a little soft tissue involvement on that area but there was also mention of resorption of the bone. I ordered an MRI of the neck attention be paid to the left mandible unfortunately they did not MRA and had repeat an MRI today. Report of that is still pending at this point. My concern that there is possibly bone involvement in this infection. Again there was no microbiology specimens from the operating room as far as I can know at this point. Empiric treatment at this point is with use of Unasyn 3 g IV every 6 hours. She had been on clindamycin before which was "discontinued yesterday but I will discontinue today. Patient will also be given a probiotic Exam - Constitutional Vitals: Period Temp Pulse Resp BP Sys/Mauricio Pulse Ox Last 24 Hr 97 F-98.7 F 67-85 17-22 102-130/58-86 95-98 General appearance: normal weight, no acute distress - Head Head exam: Present: other (Edema of the left side of the face. Quite tender to touch with limitation of movement of the neck. No crepitance.) - Eye Eye exam: Present: EOMI Pupils: Present: LIA - ENT ENT exam: Present: other (Cannot assess this the back of the throat very orbital please cannot open the mouth. No obvious drainage from inside) - Neck Neck exam: Present: other (Limited movement due to pain) - Respiratory Respiratory exam: Present: clear to auscultation bilaterally - Cardiovascular Cardiovascular exam: Present: regular rate and rhythm - GI/Abdominal GI/Abdominal exam: Present: normal bowel sounds, soft - Extremities Exam Extremities exam: Present: full ROM - Neurological Exam Neurological exam: Present: alert, oriented X3, CN II-XII intact - Psychiatric Psychiatric exam: Present: normal affect, normal mood - Skin Skin exam: Present: normal color, warm, dry Results - Labs CBC & BMP: 11/05/16 03:31 11/04/16 04:44 Lab Results: I have reviewed the past 24 hour labs
[2016-11-05] MEDS: LACTOBACILLUS RHAMNOSUS GG CAPSULE PO SCH ×2 (14:56→20:17)
[2016-11-05] MEDS: CHLORHEXIDINE 0.12% ORAL RINSE 60 ML BOTTLE SWISH/SPIT SCH ×2 (17:41→20:17)
--- NOTE | 2016-11-05 19:09 | Magnetic Resonance Report ---
MRI neck with and without contrast November 05, 2016 at 1039 hours Indication: Periodontal abscess Comparison CT performed November 02, 2016 Technique: Multisequence, multiplanar imaging of the neck was performed prior to and after administration of 20 mL gadolinium based contrast. Axial, coronal and sagittal images were submitted for interpretation Findings: 2.3 x 0.7 x 1.8 cm peripherally enhancing fluid collection contouring the buccal surface of the mandible at the level of the body and angle. Associated T2 signal changes throughout the adjacent masseter muscle extending into the superficial soft tissues as well as deep into the medial pterygoid musculature. Few prominent level 1 lymph nodes on the left, likely reactive. There is focal T2 signal abnormality involving the mandible at approximately the level of the first mandibular molar with corresponding intermediate to low T1 signal. The remainder the marrow signal is preserved. Globes and orbits are intact. Visualized paranasal sinuses are well aerated. No air-fluid levels. Visualized brain parenchyma is normal in signal. The airway is widely patent. Impression: 1. 2.3 x 1.8 centimeter abscess contouring the mandibular angle along the buccal surface with regional inflammatory changes. 2. There is small focus signal changes within the mandible at the expected level of the first mandibular molar, findings may represent reactive changes related to possible tooth extraction and or periodontal abscess. PROCEDURE INTERPRETED AT [facility] DEPARTMENT OF RADIOLOGY Final Report Signed by: Andrew Florian
[2016-11-06] MEDS: SODIUM CHLORIDE 0.9% 1,000 ML IV SCH ×3 (03:03→12:30)
[2016-11-06] MEDS: AMPICILLIN/SULBACTAM 3,000 MG in SODIUM CHLORIDE 0.9% 100 ML IV SCH ×4 (05:11→21:22)
--- NOTE | 2016-11-06 08:59 | Hospitalist Progress Note ---
Hospitalist: Subjective Interval history: Pt feels that left side of face is more swollen and she is having trouble opening her mouth. Continues with low grade temp. No chest pain or SOB. No nausea or vomiting. Last Bm yesterday. No diarrhea. No abd pain. Exam - Constitutional Vitals: Period Temp Pulse Resp BP Sys/Mauricio Pulse Ox Last 24 Hr 96.0 F-98.7 F 59-90 18-22 91-115/51-69 94-100 Exam: GEN: Awake, alert and oriented x 3, lying in bed in NAD HEENT: left facial swelling and increased warmth. Tenderness to palpation but no area fluctuation noted. no thrush. Clear sclera CV: RRR nl S1/ S2. No M/R/G LUNGS: CTAB nonlabored ABD: Soft, NT, ND, +BS EXT: Warm. No clubbing, cyanosis or edema Results - Labs CBC & BMP: 11/05/16 03:31 11/04/16 04:44 Labs: MRI head/neck: Impression: 1. 2.3 x 1.8 centimeter abscess contouring the mandibular angle along the buccal surface with regional inflammatory changes. 2. There is small focus signal changes within the mandible at the expected level of the first mandibular molar, findings may represent reactive changes related to possible tooth extraction and or periodontal abscess. - Impressions (1) Mandibular abscess Status: Acute Assessment and plan: - s/p I and D 11/03 but MRI shows 2.3 x 1.8 centimeter abscess contouring the mandibular angle along the buccal surface with regional inflammatory changes and a small focus signal changes within the mandible at the expected level of the first mandibular molar, findings may represent reactive changes related to possible tooth extraction and or periodontal abscess. - I am concerned patient may need to repeat drainage. - I have discussed with nurse manager audio about contacting surgeon to discuss. If unable to contact him, will consult general surgery to see if they are able to assist. - Will do intermittent cool compresses and trial of IV steroids to hopefully decrease some of the swelling - Repeat labs in am with CRP, ESR - F/U Blood culture - Abscess fluid pending - Cont Unasyn for now Current Visit: No (2) Possible periodontal abscess Status: Acute Assessment and plan: Continue warm compresses to the buccal area. Continue Unasyn Current Visit: Yes (3) History of steroid induced hyperglycemia. No clear diagnosis of DM in the past. - off metformin due to hypoglycemia in the past. - Monitor. D/W nurse, pt, and significant other. All questions answered. I will be away several days. One of my associates will follow in my absence.
[2016-11-06] MEDS: LACTOBACILLUS RHAMNOSUS GG CAPSULE PO SCH ×2 (10:12→21:23)
[2016-11-06] MEDS: CHLORHEXIDINE 0.12% ORAL RINSE 60 ML BOTTLE SWISH/SPIT SCH ×2 (10:15→21:23)
[2016-11-06] MEDS: methylPREDNISolone SOD SUC 40 MG/1 ML VIAL IV SCH ×2 (11:34→19:54)
--- NOTE | 2016-11-06 11:47 | Progress Note ---
Assessment and Plan - Time spent with patient Time spent with patient: Less than 30 minutes (1) Mandibular abscess Status: Acute Assessment and plan: Patient 3 days s/p I&D left submandibular abscess and debridement left mandible , likely post operative swelling that should continue to improve 1. agree with steroids, cont iv abx/pain control 2. noted collection on repeat MRI which could be fluid or blood s/p surgical debridement but will continue to monitor. If swelling does not improve then may require second drainage of submandibular abscess 3. i will continue to follow Current Visit: No Family Medicine PN Sub Interval history: Patient 3 days s/p I&D left submandibular abscess and debridement left mandible still with swelling, pain, and trismus. No dysphagai, no dyspnea, no f/c. Tolerating oral diet. Exam (Progress Note) - Constitutional Vitals: Period Temp Pulse Resp BP Sys/Mauricio Pulse Ox Last 24 Hr 96.0 F-98.7 F 59-90 18-22 91-115/51-69 94-100 General appearance: mild distress - Eye Eye exam: Present: EOMI - ENT ENT exam: Present: other (intraoral site with minimal swelling, no fluctuance, sutures c/d/i, no drainage) - Neck Neck exam: Present: other (left submandibular swelling, erythema; mild warmth, no obvious fluctuance or drainage) Results - Labs CBC & BMP: 11/05/16 03:31 11/04/16 04:44 Lab Results: I have reviewed the past 24 hour labs - Impressions WBC improving to normal levels
[2016-11-07] MEDS: AMPICILLIN/SULBACTAM 3,000 MG in SODIUM CHLORIDE 0.9% 100 ML IV SCH ×4 (03:10→20:14)
[2016-11-07 04:03] LABS: Basophils % 0.1 % (0.0-0.8); Hematocrit 34.8 VOL% (35.7-47.0); Hemoglobin 12.2 GM/DL (12.0-16.0); Immature Granulocytes % 0.6 %; Immature Granulocytes Absolute 0.06 #; Lymphocytes # 0.7 10*3/uL (1.4-4.0); Lymphocytes % 7.1 % (21.3-54.2); Mean Corpuscular HGB Conc 35.1 GM/DL (32-36); Mean Corpuscular Hemoglobin 31 PG (27-34); Mean Corpuscular Volume 87.7 FL (87-102); Mean Platelet Volume 8.7 FL (9.6-12.0); Monocytes # 0.3 10*3/uL (0.11-0.8); Monocytes % 3.1 % (1.7-12.7); Neutrophils # 8.7 10*3/uL (1.4-7.4); Neutrophils % 89.1 % (38.7-73.9); Platelet Count 231 T/CUMM (130-400); Red Blood Count 3.97 MC/CUMM (3.8-5.5); Red Cell Distribution Width 12.8 % (9.3-17.3); White Blood Count 9.8 T/CUMM (4-12)
[2016-11-07] MEDS: methylPREDNISolone SOD SUC 40 MG/1 ML VIAL IV SCH ×2 (04:20→14:48)
[2016-11-07 04:30] LABS: Calcium 8.6 MG/DL (8.5-10.1); Magnesium 2.4 MG/DL (1.8-2.4); Osmolality,Calculated 277.1 MOS/KG (273-304); Potassium 4.2 MMOL/L (3.5-5.1)
[2016-11-07 05:34] LABS: Sedimentation Rate-Westergren 58 MM/HR (0-20)
[2016-11-07] MEDS: SODIUM CHLORIDE 0.9% 1,000 ML IV SCH ×2 (07:20→09:01)
[2016-11-07] MEDS: LACTOBACILLUS RHAMNOSUS GG CAPSULE PO SCH ×2 (08:55→20:14)
[2016-11-07] MEDS: CHLORHEXIDINE 0.12% ORAL RINSE 60 ML BOTTLE SWISH/SPIT SCH ×2 (11:55→20:14)
--- NOTE | 2016-11-07 14:31 | Hospitalist Progress Note ---
Assessment and Plan (1) Mandibular abscess Status: Acute Assessment and plan: The patient continues IV antibiotics with Unasyn. Cultures have not yet determined an organism. The patient is improving. I am going to continue the IV steroid as it seems to be helping and the patient requests that we continue. Current Visit: No Hospitalist: Subjective Interval history: The patient has had incision and drainage of her mandibular abscess. The patient was having lots of pain swelling and redness of the jaw. Steroid was started yesterday and the patient states this has helped a lot. She has less pain improved jaw range of motion and less swelling today. Exam - Constitutional Vitals: Period Temp Pulse Resp BP Sys/Mauricio Pulse Ox Last 24 Hr 96.3 F-98.1 F 59-86 16-22 84-135/52-85 94-100 General appearance: mild distress - Respiratory Respiratory exam: Present: clear to auscultation bilaterally - Cardiovascular Cardiovascular exam: Present: regular rate and rhythm - GI/Abdominal GI/Abdominal exam: Present: normal bowel sounds Results - Labs CBC & BMP: 11/07/16 03:46 11/07/16 03:46 Lab Results: I have reviewed the past 24 hour labs
[2016-11-08] MEDS: AMPICILLIN/SULBACTAM 3,000 MG in SODIUM CHLORIDE 0.9% 100 ML IV SCH ×5 (03:50→22:00)
[2016-11-08] MEDS: SODIUM CHLORIDE 0.9% 1,000 ML IV SCH ×2 (03:51→20:26)
[2016-11-08] MEDS: methylPREDNISolone SOD SUC 40 MG/1 ML VIAL IV SCH ×3 (03:52→20:35)
[2016-11-08 07:31] LABS: Basophils % 0.1 % (0.0-0.8); Hematocrit 33.6 VOL% (35.7-47.0); Hemoglobin 11.7 GM/DL (12.0-16.0); Immature Granulocytes % 0.7 %; Immature Granulocytes Absolute 0.08 #; Lymphocytes # 1.4 10*3/uL (1.4-4.0); Lymphocytes % 12.8 % (21.3-54.2); Mean Corpuscular HGB Conc 34.8 GM/DL (32-36); Mean Corpuscular Hemoglobin 31 PG (27-34); Mean Corpuscular Volume 87.5 FL (87-102); Mean Platelet Volume 9.1 FL (9.6-12.0); Monocytes # 0.6 10*3/uL (0.11-0.8); Monocytes % 5.8 % (1.7-12.7); Neutrophils # 8.6 10*3/uL (1.4-7.4); Neutrophils % 80.6 % (38.7-73.9); Platelet Count 256 T/CUMM (130-400); Red Blood Count 3.84 MC/CUMM (3.8-5.5); Red Cell Distribution Width 13.2 % (9.3-17.3); White Blood Count 10.7 T/CUMM (4-12)
[2016-11-08 08:11] LABS: Albumin 3.1 G/DL (3.4-5.0); Bilirubin,Total 1.6 MG/DL (0.2-1.0); Magnesium 2.5 MG/DL (1.8-2.4); Osmolality,Calculated 281.7 MOS/KG (273-304); Phosphorous 3.7 MG/DL (2.5-4.9); Potassium 4.3 MMOL/L (3.5-5.1); Total Protein 6.8 G/DL (6.4-8.3)
[2016-11-08] MEDS: CHLORHEXIDINE 0.12% ORAL RINSE 60 ML BOTTLE SWISH/SPIT SCH (08:17)
[2016-11-08] MEDS: LACTOBACILLUS RHAMNOSUS GG CAPSULE PO SCH ×2 (08:18→20:24)
--- NOTE | 2016-11-08 08:30 | Hospitalist Progress Note ---
Assessment and Plan (1) Submandibular abscess Status: Acute Assessment and plan: Noted decrease in facial edema. The patient reports an overall improvement. We will continue intravenous corticosteroids and antibiotic therapy as previously ordered. We will await further recommendations per Dr. Oneal. If the patient continues to improve clinically, the patient may be appropriate for discharge in a.m. Current Visit: Yes Hospitalist: Subjective Interval history: Patient seen and examined; chart reviewed. No significant overnight events reported per staff. Patient states that she "feels better". The patient is tolerating p.o. intake without difficulty. Exam - Constitutional Vitals: Period Temp Pulse Resp BP Sys/Mauricio Pulse Ox Last 24 Hr 96.7 F-97.9 F 58-86 16-20 93-134/57-81 95-100 General appearance: normal weight, no acute distress - Head Head exam: Present: normal inspection, normocephalic, atraumatic, other (Mild edema noted to left side of face) - Eye Eye exam: Present: EOMI. Absent: conjunctival injection Pupils: Present: LIA, normal accommodation - ENT ENT exam: Present: normal exam, normal external ear exam, normal oropharynx - Neck Neck exam: Present: normal inspection. Absent: lymphadenopathy, meningismus, tenderness, thyromegaly - Respiratory Respiratory exam: Absent: clear to auscultation bilaterally, rales, rhonchi, stridor, wheezes - Cardiovascular Cardiovascular exam: Present: regular rate and rhythm. Absent: carotid bruit, diastolic murmur, gallop, JVD, rubs, systolic murmur - GI/Abdominal GI/Abdominal exam: Present: normal bowel sounds, soft - Extremities Exam Extremities exam: Present: normal inspection, normal capillary refill, full ROM. Absent: edema - Back Exam Back exam: Present: normal inspection - Neurological Exam Neurological exam: Present: alert, oriented X3, CN II-XII intact - Psychiatric Psychiatric exam: Present: normal affect, normal mood - Skin Skin exam: Present: normal color, warm, dry Results - Labs CBC & BMP: 11/08/16 05:32 11/08/16 05:32 Lab Results: I have reviewed the past 24 hour labs
--- NOTE | 2016-11-08 09:05 | Event Note ---
Patient is doing much better today. She is not having any pain in her jaw. The swelling of her face has resolved. I have discussed with her that we will continue her intravenous antibiotics today and discharge her tomorrow morning on oral antibiotics.
--- NOTE | 2016-11-08 14:34 | Event Note ---
Patient doing much better and swelling is resolving. Would be appropriate for discharge and follow up with her primary dentist as outpatient. Would discharge on peridex oral rinse and PO antibiotics such as augmentin or clindamycin for a week.
[2016-11-09] MEDS: LACTOBACILLUS RHAMNOSUS GG CAPSULE PO SCH ×2 (01:08→10:30)
[2016-11-09] MEDS: CHLORHEXIDINE 0.12% ORAL RINSE 60 ML BOTTLE SWISH/SPIT SCH ×2 (01:08→10:31)
[2016-11-09] MEDS: AMPICILLIN/SULBACTAM 3,000 MG in SODIUM CHLORIDE 0.9% 100 ML IV SCH (02:27)
--- NOTE | 2016-11-09 07:44 | Discharge Summary ---
Hospital Course - Hospital Course Hospital Course: This is a very pleasant 36-year-old female that presented to the ED at [facility] on the afternoon of October 04, 2016 as a transfer from the [facility] in [place], [place] for further evaluation of left-sided facial edema. The patient reported a medical history significant for migraine headaches. The patient reported a surgical history significant for recent wisdom tooth extraction, section, cholecystectomy, and dilation and cutterage.The patient reported the onset of symptoms 2 months prior to presentation. The patient reported that she had a wisdom tooth removed in August of this year. She reported that she experience some complications shortly thereafter resulting in profound swelling in her lower jaw. She returned to her oral surgeon who proceeded to perform a second dental procedure to remove what was suggested as residual tooth fragment. She reported that her swelling remained persistent and that she had been managed in the outpatient setting with antibiotics and corticosteroids. Her symptoms became severe on the day of presentation prompting her to present to the [facility] for further evaluation. During the clinical encounter at the [facility], a CT scan was performed which was significant for probable phlegmon in the subcutaneous tissue between the left parotid gland left sternocleidomastoid muscle and the left masseteric muscle.The patient was subsequently transferred and admitted to [facility] for further evaluation. Empiric antibiotic coverage, aggressive fluid rehydration, and intravenous corticosteroids were initiated at the time of admission. Due to the severity of the patient's facial edema, and behavioral psychologist consultation was requested. The patient was seen and evaluated and recommendations were given. On November 03, 2016, the patient subsequently underwent incision and drainage of the left submandibular abscess and debridement extraction site #17 with sequestrectomy under the direction of Dr. Oneal. Antibiotic coverage, intravenous corticosteroids, and fluid rehydration continued. The patient's condition slowly improved. The patient's condition is stable. She has not experienced any significant overnight events. Today, we feel that she is indeed appropriate for discharge to follow-up with her primary care physician as indicated. The patient will be discharged with instructions to start Augmentin 875 mg every 12 hours 10 days. As indicated above, patient was hospitalized with a submandibular abcess. She was treated with IV antibiotics with significant improvement. She is being discharged on oral antibiotics. Diagnosis - Discharge Diagnosis (1) Submandibular abscess Status: Acute Discharge Plan - Discharge Medications No Action Clindamycin HCl [Clindamycin Cap] 300 mg PO Q6HR - Follow Up or Referral - Forms/Instructions Exam - Constitutional Vitals: Period Temp Pulse Resp BP Sys/Mauricio Pulse Ox Last 24 Hr 96.5 F-98.6 F 60-73 15-22 104-124/52-80 96-98 DS: Provider Date of admission: 11/02/16 18:58 Primary care physician: Neno Panchal MD Attending physician on admission: Jovani Welch MD Consults: 11/02/16 20:02 Consult to Physician [CONS] Routine Comment: left oral maxial facial abscess Consulting Provider: Buster Oneal When should Consulting Provider be notified: Now Person Notified: Dr. Oneal Date Notified: 11/02/16 Time Notified: 20:33 Consult Notification Comment: keep npo will see in the am Discharging clinician: Ahsan Mcgovern [employer] O[employer]
[2016-11-09] MEDS ORDERED: AMOXICILLIN/CLAV 875 MG TABLET PO SCH (09:00)
[2016-11-09] MEDS ORDERED: predniSONE 20 MG TABLET PO SCH (09:00)
[2016-11-09] MEDS: SODIUM CHLORIDE 0.9% 1,000 ML IV SCH (10:34)
[2016-11-09 12:10] VITALS: BP 124/67
== END 2016-11-09 14:30 | disposition home or self-care (01) | DRG 137 ==
LOC: EDUNIT# → N.ED 17:35 → N.EDINP 18:58 → SUATTDRO 18:58 → N.2E 19:41
PROVIDERS: ADMIT Internal Medicine